=== PATIENT | male | born 1960 | race Caucasian/White ===

== ENCOUNTER 2020-03-06 09:52 | Outpatient (CLI) | payer MEDICARE, SELFPAY ==
--- NOTE | 2020-03-06 10:04 | US_ITS ---
WS: [id number] THYROID ULTRASOUND (TI-RADS CRITERIA) History: Abnormal thyroid.. Technique: Ultrasound examination of the thyroid and adjacent soft tissues is performed. FINDINGS: Right lobe: 5.2 cm x 2.2 cm x 2.5 cm. Volume: 14.9 cm3. Mildly enlarged gland. Heterogeneous gland with small scattered hypoechoic nodules. Left lobe: 5.3 cm x 2.5 cm x 2.2 cm. Volume: 14.6 cm3. Mildly enlarged gland. Heterogeneous gland with small scattered hypoechoic nodules. Isthmus: 0.4 cm. Estimated total number of nodules greater than or equal to 1 cm: 2 on the RIGHT and one on the LEFT. Number of spongiform nodules greater than or equal to 2 cm not described below (TR1): 0 Number of mixed cystic and solid nodules greater than or equal to 1.5 cm not described below (TR2): 1 , superior RIGHT thyroid. NODULE: #1 on the RIGHT. Size: 1.1 x 0.7 x 1.5 cm Location: Superior RIGHT Composition: Mixed cystic and solid (1) Echogenicity: Hypoechoic (2) Shape: Not taller than wide (0) Margins: Smooth (0) Echogenic foci: None (0) ACR TI-RADS total points: 3 ACR TI-RADS risk category: TR3 NODULE: #2 on the RIGHT. Size: 1.0 x 0.7 x 1.1 cm. Location: Inferior RIGHT Composition: Mixed cystic and solid (1) Echogenicity: Hypoechoic (2) Shape: Not taller than wide (0) Margins: Smooth (0) Echogenic foci: None (0) ACR TI-RADS total points: 3 ACR TI-RADS risk category: TR3 NODULE: #1 on the LEFT Size: 0.8 x 0.8 x 0.9 cm. Location: Superior LEFT Composition: Mixed cystic and solid (1) Echogenicity: Hypoechoic (2) Shape: Not taller than wide (0) Margins: Smooth (0) Echogenic foci: None (0) ACR TI-RADS total points: 3 ACR TI-RADS risk category: TR3 US/US thyroid [id number] Impression: TR3 Recommendation:Follow-up thyroid ultrasound in 1, 3 and 5 years. If thyroid nodule(s) change on follow-up examinations the recommendations will be altered as necessary.
== END 2020-03-06 09:53 | disposition home or self-care (01) ==
LOC: US 09:55
PROVIDERS: PCP Family Medicine; Visit Provider Nurse Practitioner Family
DX: E04.1 Nontoxic single thyroid nodule (principal)
CPT/HCPCS: 76536

== ENCOUNTER 2020-06-06 14:47 | Outpatient (CLI) | payer OTHER, SELFPAY ==
--- NOTE | 2020-06-06 15:08 | XR_ITS ---
WS: [id number] CHEST 2 VIEWS HISTORY: SHORTNESS OF BREATH COMPARISON: 11/25/2014, chest CT 05/12/2018 Lungs: Well circumscribed 9 mm nodule in the RIGHT upper lobe has been present on multiple prior stud ies without increase in size. This nodule is in the anterior RIGHT upper lobe. No pneumonia. No effus ions. Cardiac size: Normal. Mediastinum/Aorta: Mild atherosclerosis aorta. Bones: Normal. XR/XR chest 2V* [id number] IMPRESSION: 1. Stable chest. No acute cardiopulmonary disease. 2. No interval change 9 mm nodule RIGHT upper lobe. This nodule demonstrates l velvet-term stability.
== END 2020-06-06 14:48 | disposition home or self-care (01) ==
PROVIDERS: PCP Family Medicine; Visit Provider Nurse Practitioner Family
DX: R06.02 Shortness of breath (principal); R91.1 Solitary pulmonary nodule
CPT/HCPCS: 71046

== ENCOUNTER 2021-03-16 10:47 | Outpatient (CLI) | payer MEDICARE, SELFPAY ==
--- NOTE | 2021-03-16 | CT_ITS ---
WS: [id number] CT scan of the chest with IV contrast, additional two-dimensional coronal and sagittal reconstruction was performed. 03/16/2021 Clinical Data: PULMONARY NODULE Comparison: CT chest, 05/12/2018 DLP: 1055.[address] scans at [facility] use at least one of these dose optimization techniques: automated e xposure control; mA and/or kV adjustment per patient size (includes targeted exams where dose is matc hed to clinical indication); or iterative reconstruction. Findings: The right upper lobe nodule measuring 0.9 cm seen best at axial image 19 of 64 and the right lower lo be nodule measuring 0.7 cm seen best on axial image 36 of 64 have not changed in size or configuratio n. The 0.4 cm nodule in the right apex is not evident on this study. The heart size is normal with no pericardial effusion. No pneumonia or pneumothorax is seen. The pulmonary arterial system and thorac ic aorta demonstrate no abnormalities or dilatations. The trachea bifurcates normally into the bronch i. There is no axillary or significant mediastinal adenopathy. The upper abdomen demonstrates that the visualized liver, spleen, pancreas, gallbladder and adrenal g lands are not remarkable. The superior aspects of the kidneys are normal. The bones of the thorax are unremarkable. CT/CT chest w con* [id number] Impression: 1. Right lung nodules unchanged in size or configuration recommend no further i maging. 2. Negative for acute cardiopulmonary disease.
--- NOTE | 2021-03-16 11:03 | US_ITS ---
WS: [id number] ULTRASOUND THYROID TECHNIQUE: Ultrasound of the thyroid. CLINICAL INFORMATION: THYROID NODULE COMPARISON: None. FINDINGS: Thyroid: Enlargement of the right and left thyroid lobes are normal in appearance the prior examination. Heter ogeneous thyroid echotexture bilaterally. Stable tiny scattered hypoechoic nodules unchanged in appea jhoan. Right thyroid lobe: 4.9 cm x 2.1 cm x 2.1 cm Largest nodule right inferior thyroid spongiform appearance measuring 10 x 13 x 14 mm. This is stable compared to previous. Left thyroid lobe: 4.9 cm x 2.1 cm x 2.2 cm. Dominant left-sided thyroid nodule measures 12 x 11 x 6 mm in the mid thyroid also spongiform appeara nce. This is also unchanged from 2020. Isthmus: 0.5 mm. Cervical lymphadenopathy: None. US/US thyroid [id number] IMPRESSION: Overall no significant changes compared to March 06, 2020. Recommend 12-24 m [facility] follow-up.
[2021-03-16] MEDS: iodixanol 320 mg/mL 100mL Btl IV (13:04)
[2021-03-16 13:48] LABS: Blood Urea Nitrogen 8 mg/dL (8-23); Glomerular Filtration Rate 85.5 mL/min (90-130)
== END 2021-03-16 10:48 | disposition home or self-care (01) ==
LOC: RAD 10:51
PROVIDERS: PCP Family Medicine; Visit Provider Family Medicine
DX: R91.1 Solitary pulmonary nodule (principal); E04.1 Nontoxic single thyroid nodule
CPT/HCPCS: 71260; 76536; 82565; 84520

== ENCOUNTER 2021-08-10 21:19 | Emergency (ER) | payer MEDICARE, SELFPAY ==
[2021-08-10 21:27] VITALS: BP 145/87; PULSE 75; RESP 18; TEMP 36.6; O2SAT 98; BMI 33.9
--- NOTE | 2021-08-10 21:34 | W.ED.EPISTAX ---
HPI - Epistaxis General: Chief complaint: Epistaxis Stated complaint: Nose Bleed Time Seen by Provider: 08/10/21 21:32 History of Present Illness: 60-year-old male patient comes in today with bleeding from the left naris. Patient has packed the nose with cottonball and bleeding has been controlled. Patient reports that he had a large amount of bleeding twice which caused him to change his shirt and then came into the ER. Bleeding is controlled at this time. Patient appears well. Patient denies any blood thinners. Patient does have a history of chronic back pain and hypertension. Patient does not routinely use baby aspirin. Review of Systems General: Reports: 10 or more systems reviewed and unremarkable except in HPI and below ENMT: Reports: epistaxis Card: Denies: chest pain Resp: Denies: dyspnea Skin/Breast: Denies: rash Ronnie/Lymph: Denies: easy bruising or easy bleeding Physical Exam Const: COMMON NORMALS: alert HENMT: NOSE: Normal nares present and Epistaxis present on the left anterior source and dried blood present; no active bleeding Neck/C-Spine: COMMON NORMALS: full ROM Resp: COMMON NORMALS: normal respiratory effort and clear to auscultation bilaterally AUSCULTATION: clear to auscultation bilaterally Cardio: COMMON NORMALS: regular rate RATE: regular rate Extremity: COMMON NORMALS: full ROM Neuro: SENSORIUM/ORIENTATION: Yes alert Skin: COMMON NORMALS: no rashes or lesions noted GENERAL SKIN EXAM: no rashes or lesions noted Procedures Epistaxis Control Nostril: left Nose Prepped With: oxymetazoline Direct Inspection: yes and anterior source identified Cautery Used: none Device Inserted: other Patient Tolerated Procedure: well Course Vital Signs: Vital signs: Vital Signs Temperature 97.9 F 08/10/21 21:27 Pulse Rate 75 08/10/21 21:27 Respiratory Rate 18 08/10/21 21:27 Blood Pressure 145/87 08/10/21 21:27 Pulse Oximetry 98 08/10/21 21:27 MDM - Epistaxis Medical Decision Making 60-year-old male patient comes in with anterior nosebleed. Patient has been able to get the bleeding under control but had reoccurred twice which prompted him to come to the ER. On exam patient has some cottonball in the left nostril which was removed and dried blood was noted. No blood was noted in the posterior pharynx. No active bleeding was noted. Differential diagnosis includes anterior nosebleed, anemia, rhinitis. Naris was packed with cotton pledget saturated with lidocaine and epinephrine. Patient will leave this in place for the next 24 hours. At that time patient can remove it and then I recommended use of Afrin 2 sprays each nostril twice a day for 3 days. Patient then should follow-up with primary care in which she has an appointment for Friday. Patient was instructed return to the ER for worsening bleeding or new concerns. Discharge Plan Discharge Patient Disposition: Home Clinical Impression: Epistaxis Condition: Stable Discharge Orders: Discharge ED (Routine); Ordered 08/10/21 Ordered By: Lul Zhao Referrals: Lobito Kiser MD [Primary Care Provider] - Discharge Diet: Usual diet Discharge Activity: Increase activity as tolerated Patient Instructions: Nosebleed (ED) Activity Restrictions/Additional Instructions: Leave packing in place for the next 24 hours. Gently remove packing tomorrow after saturating with saline. Then use Afrin 1 to 2 sprays twice a day for the next 3 days. Avoid picking nose or blowing nose hard. Follow-up with primary care on Friday for recheck. Return to ER for worsening bleeding or new concerns. Coding Level of Care Code ED [place] Super[facility] for Antonio Fwliliya Exam Detailed
[2021-08-10] MEDS: oxymetazoline 0.05% Nasal Spray 15 mL 2 SPRAY NOSTRIL-L (21:52)
[2021-08-10 22:25] VITALS: BP 133/89; PULSE 69; RESP 14; O2SAT 94
[2021-08-10 22:26] VITALS: BP 133/89; PULSE 69; RESP 14; O2SAT 94
== END 2021-08-10 22:25 | disposition home or self-care (01) ==
PROVIDERS: Emergency Provider Nurse Practitioner Family; PCP Family Medicine
DX: R04.0 Epistaxis (principal)
CPT/HCPCS: 30901; 99283

== ENCOUNTER → 2024-07-27 10:52 | Outpatient (BNVA) | payer MEDICARE, SELFPAY | PROVIDERS: PCP Family Medicine; Visit Provider Podiatrist Foot & Ankle Surgery | DX: M79.672 Pain in left foot (principal); M77.42 Metatarsalgia, left foot; Q66.72 Congenital pes cavus, left foot | CPT/HCPCS: 73630; 99203 ==

== ENCOUNTER 2024-08-25 11:12 | Outpatient (CLI) | payer MEDICARE, SELFPAY | END 2024-08-25 11:13 | disposition home or self-care (01) | LOC: SPT 11:12 | PROVIDERS: PCP Family Medicine; Visit Provider Podiatrist Foot & Ankle Surgery | DX: Z46.89 Encounter for fitting and adjustment of other specified devices (principal); M77.40 Metatarsalgia, unspecified foot | CPT/HCPCS: L3030 ==

== ENCOUNTER → 2024-09-29 09:11 | Outpatient (BNVA) | payer MEDICARE, SELFPAY | PROVIDERS: PCP Family Medicine; Visit Provider Podiatrist Foot & Ankle Surgery | DX: M77.42 Metatarsalgia, left foot (principal); M84.375A Stress fracture, left foot, initial encounter for fracture; Q66.72 Congenital pes cavus, left foot | CPT/HCPCS: 99213 ==

== ENCOUNTER 2024-10-14 05:58 | Outpatient (CLI) | payer MEDICARE, OTHER, SELFPAY ==
--- NOTE | 2024-10-14 06:30 | MR_ITS ---
WS: [id number] MRI LEFT FOOT WITHOUT CONTRAST. COMPARISON: Radiograph 07/27/2024 Multiplanar, multisequence imaging is performed without contrast. MRI is centered over the area of pain which is near the lateral midfoot. History: LEFT foot pain for 3 to 4 months. No injury. There is a small amount of marrow edema involving the base of the fifth metatarsal. Marrow edema is confined to the tuberosity. Small amount of adjacent soft tissue edema. No fracture. The peroneus brevis tendon is very small caliber and intermediate signal beginning distal to the peroneal tubercle. Long segment thinned intermediate signal in the peroneus brevis with a small amount of edema. This corresponds to the site of pain. Lisfranc ligament is well visualized and normal. There is mild tendinopathy in the distal Achilles tendon. Small insertion site enthesopathy. Plantar aponeurosis is intact. No significant edema or thickening. Small calcaneal spur. 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 MR/MR foot LT wo con* [id number] IMPRESSION: 1. Focal marrow edema confined to the fifth metatarsal tuberosity. May be rela yasemin to a stress fracture or repetitive injury. 2. Very thin intermediate signal in the peroneus brevis tendon beginning dista l to the peroneal tubercle. Most consistent with a chronic injury. Tendon may h ave been previously partially torn. 3. Mild Achilles tendinopathy.
== END 2024-10-14 05:59 | disposition home or self-care (01) ==
LOC: RAD 05:59
PROVIDERS: PCP Family Medicine; Visit Provider Podiatrist Foot & Ankle Surgery
DX: M84.30XA Stress fracture, unspecified site, initial encounter for fracture (principal); M67.874 Other specified disorders of tendon, left ankle and foot
CPT/HCPCS: 73718

== ENCOUNTER 2024-10-27 10:45 | Outpatient (CLI) | payer MEDICARE, OTHER, SELFPAY | END 2024-10-27 10:46 | disposition home or self-care (01) | LOC: SPT 10:46 | PROVIDERS: PCP Family Medicine; Visit Provider Podiatrist Foot & Ankle Surgery | DX: Z46.89 Encounter for fitting and adjustment of other specified devices (principal); M84.375D Stress fracture, left foot, subsequent encounter for fracture with routine healing | CPT/HCPCS: 97760; L4361 ==

== ENCOUNTER → 2024-11-11 09:28 | Outpatient (BNVA) | payer MEDICARE, OTHER, SELFPAY | PROVIDERS: PCP Family Medicine; Visit Provider Podiatrist Foot & Ankle Surgery | DX: M77.42 Metatarsalgia, left foot (principal); M84.375D Stress fracture, left foot, subsequent encounter for fracture with routine healing; X58.XXXD Exposure to other specified factors, subsequent encounter | CPT/HCPCS: 99213 ==